=== PATIENT | male | born 1960 | race Caucasian/White ===

== ENCOUNTER 2023-06-29 08:46 | Inpatient (IN) | payer OTHER, SELFPAY ==
[2023-06-29] MEDS ORDERED: Morphine 4 MG/ML VIAL ONE (09:15)
[2023-06-29] MEDS ORDERED: Ondansetron PF 4 MG/2 ML Vial ONE (09:15)
[2023-06-29] MEDS ORDERED: Morphine 2 MG/ML VIAL SLOW IVP PRN (10:25)
[2023-06-29] MEDS ORDERED: Ipratropium/Albuterol 3 ML NEB NEB PRN (10:25)
[2023-06-29] MEDS ORDERED: Ondansetron PF 4 MG/2 ML Vial IVP PRN (10:25)
[2023-06-29] MEDS ORDERED: Cyclobenzaprine 10 MG TAB PO PRN (10:28)
[2023-06-29] MEDS ORDERED: traMADol HCl 50 MG TAB PO PRN (10:28)
[2023-06-29] MEDS ORDERED: Acetaminophen 325 MG TAB PO SCH (10:30)
[2023-06-29 10:31] LABS: #Eosinphils 0.1 thou/uL (0.0-0.7); #Monocytes 0.6 thou/uL (0.11-0.59); #Neutrophils 5.1 thou/uL (1.40-6.50); %Basophils 0.3 % (0.0-1.0); %Eosinophils 0.7 % (0.0-10.0); %Lymphocytes 19.6 % (21.0-51.0); %Monocytes 8.7 % (0.0-10.0); %Neutrophils 70.3 % (42.0-75.0); Hematocrit 44.1 % (42.0-52.0); Hemoglobin 15.2 g/dL (14.0-18.0); Mean Corpuscular HGB CONC 34.5 g/dL (32.0-36.0); Mean Corpuscular Hemoglobin 30.6 pg (27.0-31.0); Mean Corpuscular Volume 88.7 fl (78.0-98.0); Mean Platelet Volume 11.1 fL (7.4-10.4); Platelet Count 199 10x3/uL (130-400); RBC Distribution Width 12.7 % (11.5-14.5); Red Blood Cell (RBC) Count 4.97 mill/uL (4.70-6.10); White Blood Cell (WBC) Count 7.3 10x3/uL (4.8-10.8)
[2023-06-29 10:49] LABS: INR-International Normal Ratio 1.1; Prothrombin Time 14.4 sec (12.0-14.7)
[2023-06-29 10:50] LABS: PTT 35.5 sec (22.9-36.1)
[2023-06-29 11:01] LABS: ALT (SGPT) 28 U/L (8-55); AST (SGOT) 22 U/L (5-34); Albumin 3.8 g/dL (3.4-4.8); Alkaline Phosphatase 128 U/L (40-110); Anion Gap 12 mmol/L (10-20); BUN (Urea Nitrogen) 9 mg/dL (8.4-25.7); Calc. Creatinine Clearance 0 mL/min (70-130); Calcium 8.8 mg/dL (7.8-10.44); Carbon Dioxide 20 mmol/L (23-31); Chloride 107 mmol/L (98-107); Estimated GFR 108; Glucose 93 mg/dL (80-115); Potassium 4.2 mmol/L (3.5-5.1); Protein, Total 6.8 g/dL (5.8-8.1); Sodium 135 mmol/L (136-145)
[2023-06-29 12:54] VITALS: BMI 25.4
[2023-06-29] MEDS: Acetaminophen 500 MG TAB PO SCH ×2 (13:32→17:06)
[2023-06-29] MEDS: Sodium Chloride 0.9% 1,000 ML IV SCH ×2 (13:32→17:21)
[2023-06-29] MEDS: traMADol HCl 50 MG TAB PO SCH ×2 (13:33→17:06)
[2023-06-29 19:23] LABS: Amphetamine Not Detected (NotDetected); Barbiturates Screen Not Detected (NotDetected); Benzodiazepine Screen Not Detected (NotDetected); Cocaine Metabolite Screen Not Detected (NotDetected); Methadone Not Detected (NotDetected); Methamphetamine Not Detected (NotDetected); Opiate Screen Detected (NotDetected); Oxycodone Screen Not Detected (NotDetected); Phencyclidine (PCP) Not Detected (NotDetected); THC/Cannabinoid Screen Detected (NotDetected); Tricyclic Screen Not Detected (NotDetected)
[2023-06-29] MEDS: Famotidine/PF 20 mg/2ml Vial SLOW IVP SCH (20:34)
[2023-06-29] MEDS: Senokot S 8.6-50 MG TAB PO SCH (20:34)
[2023-06-30] MEDS: Acetaminophen 500 MG TAB PO SCH ×5 (05:22→23:05)
[2023-06-30] MEDS: traMADol HCl 50 MG TAB PO SCH ×5 (05:23→23:05)
[2023-06-30] MEDS ORDERED: CEFAZOLIN 2 GM in Sodium Chloride 0.9% 100 ML IVPB SCH (06:00)
[2023-06-30 06:50] LABS: #Eosinphils 0.1 thou/uL (0.0-0.7); #Monocytes 0.6 thou/uL (0.11-0.59); #Neutrophils 3.9 thou/uL (1.40-6.50); %Basophils 0.6 % (0.0-1.0); %Eosinophils 1.5 % (0.0-10.0); %Lymphocytes 32.8 % (21.0-51.0); %Monocytes 8.5 % (0.0-10.0); %Neutrophils 56.2 % (42.0-75.0); Hematocrit 41.8 % (42.0-52.0); Hemoglobin 13.9 g/dL (14.0-18.0); Mean Corpuscular HGB CONC 33.3 g/dL (32.0-36.0); Mean Corpuscular Hemoglobin 30.5 pg (27.0-31.0); Mean Platelet Volume 11.6 fL (7.4-10.4); Platelet Count 190 10x3/uL (130-400); Red Blood Cell (RBC) Count 4.56 mill/uL (4.70-6.10); White Blood Cell (WBC) Count 6.9 10x3/uL (4.8-10.8)
[2023-06-30 06:59] LABS: Mean Corpuscular Volume 91.7 fl (78.0-98.0)
[2023-06-30 07:08] LABS: Prothrombin Time 13.6 sec (12.0-14.7)
[2023-06-30 07:09] LABS: PTT 36.9 sec (22.9-36.1)
[2023-06-30 07:18] LABS: Anion Gap 9 mmol/L (10-20); BUN (Urea Nitrogen) 13 mg/dL (8.4-25.7); Calc. Creatinine Clearance 132 mL/min (70-130); Carbon Dioxide 23 mmol/L (23-31); Chloride 107 mmol/L (98-107); Estimated GFR 105; Glucose 94 mg/dL (80-115); Potassium 3.9 mmol/L (3.5-5.1); Sodium 135 mmol/L (136-145)
[2023-06-30] MEDS ORDERED: fentaNYL PF 100 MCG/2 ML SYRINGE ONE (07:23)
[2023-06-30] MEDS ORDERED: Phenylephrine 10 MG/ML VIAL ONE (07:24)
[2023-06-30] MEDS ORDERED: CEFAZOLIN 2 GM VIAL ONE (07:41)
[2023-06-30] MEDS ORDERED: Sodium Chloride 0.9% 100 ML ONE (07:42)
[2023-06-30] MEDS ORDERED: Lidocaine 1% PF 5 ML VIAL ONE (08:23)
[2023-06-30] MEDS ORDERED: PROPOFOL 200 MG/20 ML VIAL ONE (08:23)
[2023-06-30] MEDS ORDERED: Rocuronium Bromide 10 MG/ML (10ML VIAL) ONE (08:23)
[2023-06-30] MEDS ORDERED: Glycopyrrolate 0.2 MG/ML 5 ML SYRINGE ONE (08:23)
[2023-06-30] MEDS ORDERED: Ketorolac Tromethamine 30 MG/ML VIAL ONE (08:23)
[2023-06-30] MEDS ORDERED: Ondansetron PF 4 MG/2 ML Vial ONE (08:23)
[2023-06-30] MEDS ORDERED: Dexamethasone 20 MG/5 ML VIAL ONE (08:23)
[2023-06-30] MEDS ORDERED: ePHEDrine Sulfate 50 MG/10 ML VIAL ONE (08:23)
[2023-06-30] MEDS ORDERED: SUGAMMADEX SODIUM 200 MG/2 ML VIAL ONE (09:13)
[2023-06-30] MEDS ORDERED: Ondansetron HCl/PF 4 MG/2 ML Vial IVP PRN (09:39)
[2023-06-30] MEDS ORDERED: HYDROmorphone 2 MG/ML VIAL SLOW IVP PRN (09:39)
[2023-06-30] MEDS ORDERED: Promethazine HCl 25 MG/ML VIAL IM PRN (09:39)
[2023-06-30] MEDS ORDERED: PACU-Morphine 4MG/ML VIAL SLOW IVP PRN (09:39)
[2023-06-30] MEDS: Famotidine/PF 20 mg/2ml Vial SLOW IVP SCH ×2 (10:14→21:24)
[2023-06-30] MEDS: Senokot S 8.6-50 MG TAB PO SCH ×2 (10:14→21:24)
[2023-06-30] MEDS: Polyethylene Glycol 3350 17 GM Packet PO SCH (10:14)
[2023-06-30] MEDS: CEFAZOLIN 2 GM in Sodium Chloride 0.9% 100 ML IVPB SCH ×2 (12:55→21:24)
[2023-07-01] MEDS: traMADol HCl 50 MG TAB PO SCH ×3 (05:51→17:33)
[2023-07-01] MEDS: CEFAZOLIN 2 GM in Sodium Chloride 0.9% 100 ML IVPB SCH (05:51)
[2023-07-01] MEDS: Acetaminophen 500 MG TAB PO SCH ×3 (05:51→17:33)
[2023-07-01 06:02] LABS: #Monocytes 0.8 thou/uL (0.11-0.59); %Basophils 0.2 % (0.0-1.0); %Lymphocytes 8.2 % (21.0-51.0); %Monocytes 5.9 % (0.0-10.0); %Neutrophils 85.3 % (42.0-75.0); Hematocrit 41.4 % (42.0-52.0); Hemoglobin 13.7 g/dL (14.0-18.0); Mean Corpuscular HGB CONC 33.1 g/dL (32.0-36.0); Mean Corpuscular Volume 90.6 fl (78.0-98.0); Mean Platelet Volume 11.5 fL (7.4-10.4); Platelet Count 208 10x3/uL (130-400); RBC Distribution Width 12.7 % (11.5-14.5); Red Blood Cell (RBC) Count 4.57 mill/uL (4.70-6.10); White Blood Cell (WBC) Count 12.8 10x3/uL (4.8-10.8)
[2023-07-01] MEDS: Famotidine/PF 20 mg/2ml Vial SLOW IVP SCH ×2 (08:53→20:12)
[2023-07-01] MEDS: Senokot S 8.6-50 MG TAB PO SCH ×2 (08:53→20:12)
[2023-07-01] MEDS: Polyethylene Glycol 3350 17 GM Packet PO SCH (08:54)
[2023-07-02] MEDS: Acetaminophen 500 MG TAB PO SCH ×3 (00:20→11:27)
[2023-07-02] MEDS: traMADol HCl 50 MG TAB PO SCH ×3 (00:20→11:27)
[2023-07-02 06:13] LABS: #Eosinphils 0.1 thou/uL (0.0-0.7); #Monocytes 0.8 thou/uL (0.11-0.59); #Neutrophils 4.1 thou/uL (1.40-6.50); %Basophils 0.2 % (0.0-1.0); %Eosinophils 0.6 % (0.0-10.0); %Lymphocytes 40.9 % (21.0-51.0); %Monocytes 8.9 % (0.0-10.0); Hematocrit 38.6 % (42.0-52.0); Mean Corpuscular HGB CONC 33.7 g/dL (32.0-36.0); Mean Corpuscular Hemoglobin 30.2 pg (27.0-31.0); Mean Corpuscular Volume 89.6 fl (78.0-98.0); Mean Platelet Volume 11.4 fL (7.4-10.4); Platelet Count 195 10x3/uL (130-400); Red Blood Cell (RBC) Count 4.31 mill/uL (4.70-6.10); White Blood Cell (WBC) Count 8.4 10x3/uL (4.8-10.8)
[2023-07-02] MEDS: Senokot S 8.6-50 MG TAB PO SCH (08:07)
[2023-07-02] MEDS: Polyethylene Glycol 3350 17 GM Packet PO SCH (08:07)
[2023-07-02] MEDS: Famotidine/PF 20 mg/2ml Vial SLOW IVP SCH (08:07)
[2023-07-02] MEDS ORDERED: Aspirin 81 mg Enteric Coated Tablet PO SCH (09:00)
[2023-07-02 13:26] VITALS: BP 118/68; TEMP 98.3
[2023-07-02] MEDS ORDERED: Carvedilol 3.125 MG TAB PO SCH (21:00)
[2023-07-02] MEDS ORDERED: Famotidine 20 MG TAB PO SCH (21:00)
[2023-07-03] MEDS ORDERED: Clopidogrel Bisulfate 75 MG TAB PO SCH (09:00)
[2023-07-03] MEDS ORDERED: Lisinopril 2.5 MG TAB PO SCH (09:00)
== END 2023-07-02 14:08 | disposition home or self-care (01) | DRG 481 ==
LOC: ERS 08:46 → SURG A 10:25
PROVIDERS: ADMIT Surgery; ATTEND Surgery
PROC: 0QS604Z Reposition Right Upper Femur with Internal Fixation Device, Open Approach (ICD-10-PCS; principal; 2023-06-30)
PROC: 3E033XZ Introduction of Vasopressor into Peripheral Vein, Percutaneous Approach (ICD-10-PCS; 2023-06-30)
DX: S72.011A Unspecified intracapsular fracture of right femur, initial encounter for closed fracture (principal); K57.92 Diverticulitis of intestine, part unspecified, without perforation or abscess without bleeding; S72.031A Displaced midcervical fracture of right femur, initial encounter for closed fracture; F17.210 Nicotine dependence, cigarettes, uncomplicated; I10 Essential (primary) hypertension; I25.10 Atherosclerotic heart disease of native coronary artery without angina pectoris; V59 Occupant of pick-up truck or van injured in other and unspecified transport accidents; Z79.82 Long term (current) use of aspirin; Z79.899 Other long term (current) drug therapy
CPT/HCPCS: 36415; 36416; 71045; 80048; 80053; 80306; 85025; 85610; 85730; 86850; 86900; 86901; 93005; 96374; 96375; C1713; J1100; J1650; J1885; J2270; J2370; J2405; J2704; J3490; J7050; S0028